=== PATIENT | female | born 1970 | race Caucasian/White ===

== ENCOUNTER 2018-03-03 14:43 | Emergency (ER) | payer OTHER, SELFPAY ==
[~2018-03-03] VITALS: Ht 160 cm; Wt 91.6 kg
[2018-03-03 15:07] VITALS: BP 129/111
--- NOTE | 2018-03-03 15:07 | NUR ---
ARRIVAL PATIENT ARRIVED TO ED5 VIA W/C WITH FAMILY,C/O OF LOW BACK PAIN SINCE SAT, HAS ATTEMPTED TO TREAT HERSELF WITH OVER THE COUNTER MEDICATIONS WITH NO RELIEF, CAME TO THE ED FOR FURTHER EVAL.
[2018-03-03] MEDS ORDERED: TORADOL IM STA (15:44)
[2018-03-03] MEDS ORDERED: TORADOL ONE (15:44)
--- NOTE | 2018-03-03 15:49 | ER.PDOC ---
General Chief Complaint: Lower Back Pain or Injury Stated Complaint: LOWER BACK PAIN Time seen by MD: 15:46 Source: patient Exam Limitations: no limitations History of Present Illness Initial Comments Lower back pain for 3 days. Denies fall or injury she can remember. Severity/Quality: moderate Method of Injury: unknown Associated Symptoms: lower back pain Allergies: Coded Allergies: No Known Allergies (Unverified , 03/03/18) Home Meds No Active Prescriptions or Reported Meds Past Medical History Medical History: no pertinent history Surgical History: hysterectomy Social History Smoking: cigarettes Alcohol Use: none Drug Use: none Review of Systems Constitutional: no symptoms reported EENTM: no symptoms reported Respiratory: no symptoms reported Cardiovascular: no symptoms reported Gastrointestinal: no symptoms reported Musculoskeletal: see HPI All Other Systems: Reviewed and Negative Physical Exam General Appearance: No Apparent Distress, WD/WN Neck: Non-Tender, Normal Alignment Cardiovascular/Respiratory: Regular Rate, Rhythm, No M/R/G, Normal Peripheral Pulses, No JVD, Normal Breath Sounds, No Respiratory Distress Gastrointestinal: Normal Bowel Sounds, No Organomegaly, No Pulsatile Mass, Non Tender, Soft Back: Vertebral Tenderness (L spine) Extremities: No Evidence of Injury, Normal Range of Motion, Non-Tender, No Pedal Edema, Pelvis Stable Neuro/Psych: Alert, sweatband separator nml/symmetrical, mood/effect nml, No Motor/Sensory Deficits, Relexes nml Results/Orders Results/Orders Administered Medications Medications (Trade) Dose Ordered Sig/Albert Route PRN Reason Start Time Stop Time Status Last Admin Dose Admin Ketorolac Tromethamine (Toradol) 60 mg STAT STAT IM 03/03/18 15:44 03/03/18 15:45 DC 03/03/18 15:50 EKG/XRAY/CT/US CT Comments: Nothing acute on CT L spine and pelvis. Departure Time of Disposition: 18:03 Disposition: 01 HOME, SELF-CARE Impression: Primary Impression: Low back pain Condition: Stable Referrals: PCP,UNKNOWN (PCP) PRIMARY CARE PROVIDER Additional Instructions: Tramadol Flexeril Ibuprofen F/U with your PCP or Dr. Cassidy in 2-3 days Scripts No Active Prescriptions or Reported Meds Duration or Time Spent with Pa: 60 mins Problem Qualifiers Primary Impression: Low back pain Chronicity: acute Back pain laterality: unspecified Sciatica presence: without sciatica Qualified Codes: M54.5 - Low back pain RENETTA RAMON MD Mar 03, 2018 15:49
--- NOTE | 2018-03-03 15:53 | NUR ---
RAD PT TAKEN TO RAD VIA WHEELCHAIR
--- NOTE | 2018-03-03 16:00 | NUR ---
RAD PATIENT BACK FROM RADIOLOGY
--- NOTE | 2018-03-03 16:16 | DIREP ---
PROCEDURE:XRAY SPINE LUMBAR 2-3 VWS COMPARISON:Two views the lumbar spine, 12/18/2013, BSA. INDICATIONS:Pain TECHNIQUE:AP, lateral, and coned down lateral views of the lumbar spine are provided. FINDINGS: ALIGNMENT:No scoliosis. VERTEBRAE:No fracture. No lytic or blastic lesions of bone. There is a 2.5 x 3.1 cm calcific density in the right pelvic cavity DISK SPACES:Marked narrowing of the L5-S1 disc. Prominent osteophyte formation at the anterior margin of the T11-12 disc. SPONDYLOLISTHESIS:None. SACROILIAC JOINTS:Normal. OTHER:Normal. CONCLUSION: 1. No evidence of acute bony injury to the lumbar spine. Compared to the prior BSA exam, there has been new or a greater degree of narrowing of the L5-5 S1 disc. 2. Calcific density overlying the right sacroiliac joint on the AP film is probably in the pelvic cavity itself and may be related to calcified uterine fibroid. If further characterization of this calcific mass is needed, CT scan of the pelvis may be obtained for further evaluation. Dictated by: Judah Ho M.D. on 03/03/2018 at 04:09 PM
[2018-03-03 17:03] VITALS: BP 150/95
--- NOTE | 2018-03-03 17:03 | NUR ---
STATUS PATIENT CONTINUES TO VOICE PAIN, DOCTOR YENNY SPOKE WITH PATIENT WILL ORDER A CAT SCAN. AWAITING TO BE TAKEN AT THIS TIME
--- NOTE | 2018-03-03 17:30 | NUR ---
CAT SCAN PATIENT TO AND FROM CAT SCAN.
--- NOTE | 2018-03-03 17:47 | DIREP ---
PROCEDURE:CT PELVIS W/O COMPARISON:None. INDICATIONS:Calcified density overlying right sacroiliac joint on X rays FINDINGS: RETROPERITONEUM:No mass or adenopathy. BOWEL/MESENTERY:There is no intestinal obstruction, free fluid, free air or mesenteric inflammatory changes. Normal appendix. ABDOMINAL WALL:No mass or hernia. PELVIS: Status post hysterectomy. There is a 3.0 x 2.0 x 2.7 cm rim calcification in the right hemipelvis along the sidewall. No adenopathy. No visible focal bladder wall thickening or intraluminal calculus. BONES:No bony lesion or acute fracture. OTHER:Negative. CONCLUSION: 1. Rim calcified soft tissue structure along the right pelvic side wall. Status posthysterectomy. Dictated by: Deepak Ferrera M.D. on 03/03/2018 at 05:26 PM
[2018-03-03] MEDS ORDERED: MORPHINE SULFATE IM STA (17:51)
--- NOTE | 2018-03-03 17:58 | DIREP ---
PROCEDURE: CT SPINE LUMBAR W/O TECHNIQUE:Axial cuts were obtained through the lumbar spine. The images were viewed at bone settings. COMPARISON:None. INDICATIONS:Pain FINDINGS: VERTEBRAE:There is no fracture or compression deformity. There is endplate sclerosis and marginal osteophytes at T12. DISK SPACES:Negative. PARASPINAL TISSUES:No obvious soft tissue swelling or mass. SPONDYLOLISTHESIS:None. OTHER:Bilateral nonobstructing punctate renal calcifications. Right pelvic soft tissue nodule with rim calcifications, question of old cyst or lymph node calcification. CONCLUSION: 1. There is no visible fracture. 2. There is no subluxation. Dictated by: Deepak Ferrera M.D. On 03/03/2018 at 05:49 PM
[2018-03-03] MEDS ORDERED: MORPHINE SULFATE ONE (17:59)
[2018-03-03 18:16] VITALS: BP 144/80
[2018-03-03 18:21] VITALS: BP 144/80
== END 2018-03-03 18:16 | disposition home or self-care (01) ==
LOC: ER 14:43
DX: M54.5 Low back pain (principal); F17.210 Nicotine dependence, cigarettes, uncomplicated; Z90.710 Acquired absence of both cervix and uterus
CPT/HCPCS: 72100; 72131; 72192; 96372; 99284; J1885; J2270